=== PATIENT | female | born 1940 | race Caucasian/White ===

== ENCOUNTER → 2023-09-13 10:55 | Outpatient (REF) | payer MEDICARE, OTHER, SELFPAY | LOC: RAD 10:55 | PROVIDERS: ATTENDING PHYSICIAN Nurse Practitioner Family | DX: M25.562 Pain in left knee (principal) | CPT/HCPCS: 73564 ==

== ENCOUNTER → 2023-11-16 08:01 | Outpatient (REF) | payer MEDICARE, OTHER, SELFPAY ==
[2023-11-16 08:38] LABS: Urine Albumin Negative (Neg - Trace); Urine Bilirubin Negative (Negative); Urine Character Clear (Clear); Urine Color Yellow; Urine Glucose Negative (Negative); Urine Ketone Negative (Negative); Urine Leukocyte 1+ (Negative); Urine Nitrite Positive (Negative); Urine Occult Blood Negative (Negative); Urine Specific Gravity 1.015 (<1.030); Urine Urobilinogen Negative (Neg - 1+); Urine pH 6.5 (5.0-9.0)
[2023-11-16 08:49] LABS: Urine Bacteria Moderate (Negative); Urine White Cell 30-40 /HPF (0-5)
[2023-11-16 08:50] LABS: Urine Hyaline Cast 0-2 /LPF (0-2); Urine Red Blood Cell None Seen /HPF (0-2)
[2023-11-16 09:11] LABS: Glycohemoglobin (HgbA1c) 5.7 % (4.0-5.6)
[2023-11-16 10:01] LABS: Blood Urea Nitrogen 20 mg/dl (7-17); Calcium 9.6 mg/dl (8.4-10.2); Carbon Dioxide 29 mmol/L (22-30); Chloride 104 mmol/L (98-107); Glucose 90 mg/dl (70-99); Iron 72 ug/dl (37-170); Potassium 4.1 mmol/L (3.5-5.1); Sodium 143 mmol/L (135-145); eGFR > 60.00
[2023-11-16 10:11] LABS: Percent Saturation 26 % (20-50); Total Iron Binding Capacity 271 ug/dl (265-497)
[2023-11-16 10:20] LABS: TSH Reflex To Free T4 6.42 uIU/ml (0.47-4.68)
[2023-11-16 10:24] LABS: Ferritin 45.7 ng/ml (11.1-264.0)
[2023-11-16 10:39] LABS: Vitamin B12 880 pg/ml (239-931)
== END ==
LOC: REG 08:01
PROVIDERS: ATTENDING PHYSICIAN Emergency Medicine
DX: R53.83 Other fatigue (principal); C93.10 Chronic myelomonocytic leukemia not having achieved remission; D50.8 Other iron deficiency anemias; R73.03 Prediabetes; E53.8 Deficiency of other specified B group vitamins
CPT/HCPCS: 36415; 80048; 81003; 81015; 82607; 82728; 83036; 83540; 83550; 84439; 84443; 87077; 87086; 87186

== ENCOUNTER → 2024-01-10 12:11 | Outpatient (REF) | payer MEDICARE, OTHER, SELFPAY ==
[2024-01-10 15:57] LABS: Free T4 0.66 ng/dl (0.78-2.19)
== END ==
LOC: REG 12:11
PROVIDERS: ATTENDING PHYSICIAN Emergency Medicine
DX: R79.89 Other specified abnormal findings of blood chemistry (principal); E03.9 Hypothyroidism, unspecified
CPT/HCPCS: 36415; 84439; 84443

== ENCOUNTER → 2024-01-11 14:07 | Outpatient (REF) | payer MEDICARE, OTHER, SELFPAY | LOC: CLAB 14:07 | PROVIDERS: ATTENDING PHYSICIAN Emergency Medicine | DX: N39.0 Urinary tract infection, site not specified (principal) | CPT/HCPCS: 87086 ==

== ENCOUNTER → 2024-01-30 10:29 | Outpatient (REF) | payer MEDICARE, OTHER, SELFPAY | LOC: RAD 10:29 | PROVIDERS: ATTENDING PHYSICIAN Emergency Medicine | DX: M54.50 Low back pain, unspecified (principal) | CPT/HCPCS: 72110 ==

== ENCOUNTER → 2024-03-04 12:22 | Outpatient (REF) | payer MEDICARE, OTHER, SELFPAY ==
[2024-03-04 13:36] LABS: Hematocrit 36.6 % (37.0-47.0); Hemoglobin 12.1 g/dL (12.0-16.0); Mean Corp Hgb Conc. 33.1 g/dL (33.0-37.0); Mean Corpuscular Hgb 30.3 pg (27.0-31.0); Mean Corpuscular Volume 91.5 fL (81.0-99.0); Mean Platelet Volume 11.3 fL (7.4-10.4); Platelet Count 187 10^3/uL (130-400); Red Cell Dist. Width 13.9 % (11.5-14.5); White Blood Cell Count 5.2 10^3/uL (4.8-10.8)
[2024-03-04 14:17] LABS: Absolute Neutrophils -Man Diff 2.4 10^3/uL (1.4-6.5); Band Neutrophils 0 % (0-3); Segmented Neutrophils 47 % (42-75)
[2024-03-04 14:18] LABS: Eosinophils 1 % (0-6); Lymphocytes 27 % (20-51); Monocytes 25 % (2-9); Normal RBC Morphology Yes; Platelets Checked Yes; Total Cells Counted 100
[2024-03-04 14:28] LABS: TSH Reflex To Free T4 2.18 uIU/ml (0.47-4.68)
== END ==
LOC: REG 12:22
PROVIDERS: ATTENDING PHYSICIAN Internal Medicine Hematology & Oncology; FAMILY PHYSICIAN Emergency Medicine
DX: E03.9 Hypothyroidism, unspecified (principal); D72.821 Monocytosis (symptomatic); C93.10 Chronic myelomonocytic leukemia not having achieved remission
CPT/HCPCS: 36415; 84443; 85025

== ENCOUNTER → 2024-05-14 14:31 | Outpatient (REF) | payer MEDICARE, OTHER, SELFPAY ==
[2024-05-14 16:41] LABS: TSH Reflex To Free T4 1.25 uIU/ml (0.47-4.68)
== END ==
LOC: REG 14:31
PROVIDERS: ATTENDING PHYSICIAN Emergency Medicine
DX: E03.9 Hypothyroidism, unspecified (principal)
CPT/HCPCS: 36415; 84443

== ENCOUNTER → 2024-06-19 09:06 | Outpatient (REF) | payer MEDICARE, OTHER, SELFPAY | LOC: RCS 09:06 | PROVIDERS: ATTENDING PHYSICIAN Internal Medicine Cardiovascular Disease; FAMILY PHYSICIAN Emergency Medicine | DX: I34.0 Nonrheumatic mitral (valve) insufficiency (principal); I10 Essential (primary) hypertension | CPT/HCPCS: 93306 ==

== ENCOUNTER → 2024-07-10 12:30 | Outpatient (REF) | payer MEDICARE, OTHER, SELFPAY ==
[2024-07-10 13:25] LABS: ALT (SGPT) 21 U/L (0-35); AST (SGOT) 25 U/L (14-36); Albumin 4.9 g/dl (3.5-5.0); Alkaline Phosphatase 67 U/L (38-126); Blood Urea Nitrogen 16 mg/dl (7-17); Calcium 9.5 mg/dl (8.4-10.2); Carbon Dioxide 29 mmol/L (22-30); Chloride 103 mmol/L (98-107); Glucose 84 mg/dl (70-99); HDL Cholesterol 64 mg/dl; LDL Cholesterol, Calculated 111 mg/dl; Potassium 4.2 mmol/L (3.5-5.1); Sodium 139 mmol/L (135-145); Total Bilirubin 1.5 mg/dl (0.2-1.3); Total Cholesterol 190 mg/dl (50-199); Total Protein 7.3 g/dl (6.3-8.2); Triglyceride 77 mg/dl (10-149); Very Low Density Lipoprotein 15 mg/dl (0-30); eGFR > 60.00
[2024-07-10 13:28] LABS: Hematocrit 36.6 % (37.0-47.0); Hemoglobin 12.1 g/dL (12.0-16.0); Mean Corp Hgb Conc. 33.1 g/dL (33.0-37.0); Mean Corpuscular Hgb 29.2 pg (27.0-31.0); Mean Corpuscular Volume 88.4 fL (81.0-99.0); Mean Platelet Volume 11.1 fL (7.4-10.4); Platelet Count 189 10^3/uL (130-400); Red Blood Cell Count 4.14 10^6/uL (4.20-5.40); Red Cell Dist. Width 13.8 % (11.5-14.5); White Blood Cell Count 5.5 10^3/uL (4.8-10.8)
[2024-07-10 13:54] LABS: TSH Reflex To Free T4 3.89 uIU/ml (0.47-4.68)
[2024-07-10 14:06] LABS: Absolute Neutrophils -Man Diff 2.3 10^3/uL (1.4-6.5); Band Neutrophils 2 % (0-3); Eosinophils 2 % (0-6); Lymphocytes 29 % (20-51); Monocytes 26 % (2-9); Segmented Neutrophils 41 % (42-75)
[2024-07-10 14:07] LABS: Platelets Checked YES
[2024-07-10 14:12] LABS: Microcytosis FEW; Normal RBC Morphology No; Ovalocytes FEW; Poikilocytosis Slight; Total Cells Counted 100
[2024-07-11 07:22] LABS: Glycohemoglobin (HgbA1c) 5.6 % (4.0-5.6)
== END ==
LOC: REG 12:30
PROVIDERS: ATTENDING PHYSICIAN Emergency Medicine
DX: Z00.00 Encounter for general adult medical examination without abnormal findings (principal); E03.9 Hypothyroidism, unspecified; R73.03 Prediabetes; I10 Essential (primary) hypertension; E78.00 Pure hypercholesterolemia, unspecified; I34.0 Nonrheumatic mitral (valve) insufficiency
CPT/HCPCS: 36415; 80053; 80061; 83036; 84443; 85025

== ENCOUNTER → 2024-08-29 08:40 | Outpatient (REF) | payer MEDICARE, OTHER, SELFPAY ==
[2024-08-29 10:29] LABS: Direct Bilirubin 0.2 mg/dl (0.0-0.4); Total Bilirubin 1.3 mg/dl (0.2-1.3)
[2024-08-29 10:48] LABS: Vitamin D, 25-OH*** 60.3 ng/mL (30-80)
[2024-08-29 11:21] LABS: Vitamin B12 900 pg/ml (239-931)
== END ==
LOC: RAD 08:40
PROVIDERS: ATTENDING PHYSICIAN Emergency Medicine
DX: M47.812 Spondylosis without myelopathy or radiculopathy, cervical region (principal); R17 Unspecified jaundice; R68.89 Other general symptoms and signs; Z79.899 Other long term (current) drug therapy
CPT/HCPCS: 36415; 72052; 82247; 82248; 82306; 82607

== ENCOUNTER 2024-11-05 17:18 | Emergency (ER) | payer MEDICARE, OTHER, SELFPAY ==
[2024-11-05 17:28] VITALS: BP 147/73
[2024-11-05 17:52] LABS: Hematocrit 34.6 % (37.0-47.0); Hemoglobin 11.9 g/dL (12.0-16.0); Mean Corp Hgb Conc. 34.4 g/dL (33.0-37.0); Mean Corpuscular Hgb 30.1 pg (27.0-31.0); Mean Corpuscular Volume 87.6 fL (81.0-99.0); Mean Platelet Volume 11.3 fL (7.4-10.4); Platelet Count 173 10^3/uL (130-400); Red Blood Cell Count 3.95 10^6/uL (4.20-5.40); Red Cell Dist. Width 13.6 % (11.5-14.5); White Blood Cell Count 8.8 10^3/uL (4.8-10.8)
[2024-11-05 18:03] LABS: ALT (SGPT) 19 U/L (0-35); AST (SGOT) 24 U/L (14-36); Albumin 4.6 g/dl (3.5-5.0); Alkaline Phosphatase 52 U/L (38-126); Blood Urea Nitrogen 21 mg/dl (7-17); Calcium 9.9 mg/dl (8.4-10.2); Carbon Dioxide 29 mmol/L (22-30); Chloride 108 mmol/L (98-107); Glucose 106 mg/dl (70-99); Sodium 141 mmol/L (135-145); Total Bilirubin 0.9 mg/dl (0.2-1.3); Total Protein 7.2 g/dl (6.3-8.2); eGFR > 60.00
[2024-11-05 18:14] LABS: Troponin I < 0.012 ng/ml
[2024-11-05 18:18] LABS: Absolute Neutrophils -Man Diff 4.2 10^3/uL (1.4-6.5); Band Neutrophils 0 % (0-3); Lymphocytes 35 % (20-51); Monocytes 15 % (2-9); Platelets Checked Yes; Segmented Neutrophils 48 % (42-75)
[2024-11-05 18:19] LABS: Normal RBC Morphology Yes; Total Cells Counted 100
--- NOTE | 2024-11-05 20:55 | ED.GENMED ---
History of Present Illness
General
Chief Complaint: Fainting/Passed Out
Source: patient
Exam Limitations: none
Time Seen by Provider: 11/05/24 20:45
History of Present Illness
History of Present Illness:
See MDM
Past History
Past History
ED Past Medical History: HTN, Hypothyroidism and Other (Sinus tachycardia)
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
Social History
Tobacco: Former smoker
Alcohol: Occasional
Drug: None
Living: with family
Employment: Retired
Family History
Family History: Other (Has a mother with hypertension father with acromegaly and headaches)
Phy Exam
Physical Exam
Physical Exam:
See MDM
Course
Orders/Labs/Results
Orders:
Orders
11/05/24 17:32
Electrocardiogram (*1) Urgent
Reason for Study: Syncope
CT Head W/o Iv Contrast Urgent
Comment:
Reason For Exam: syncope, head injury
11/05/24 17:33
EKG- Treatment ONCE
11/05/24 17:37
Complete Blood Count/With Diff Urgent
Comprehensive Metabolic Panel Urgent
Manual Differential Urgent
Troponin I Urgent
Abnormal Lab Results
11/05/24
17:37
RBC 3.95 L 10^6/uL
(4.20-5.40)
Hgb 11.9 L g/dL
(12.0-16.0)
Hct 34.6 L %
(37.0-47.0)
MPV 11.3 H fL
(7.4-10.4)
Monocytes (Manual) 15 H %
(2-9)
Chloride 108 H mmol/L
(98-107)
BUN 21 H mg/dl
(7-17)
Glucose 106 H mg/dl
(70-99)
11/05/24 17:37
11/05/24 17:37
Vital Signs
Initial and Last Documented VS:
Initial Vital Signs
Temp Pulse Resp BP Pulse Ox
98.0 F 74 18 147/73 95
11/05/24 17:28 11/05/24 17:28 11/05/24 17:28 11/05/24 17:28 11/05/24 17:28
Last Documented Vital Signs
Temp Pulse Resp BP Pulse Ox
98.0 F 74 18 147/73 95
11/05/24 17:28 11/05/24 17:28 11/05/24 17:28 11/05/24 17:28 11/05/24 17:28
MDM/Problems Addressed
Differential Diagnosis Includes:
HPI and MDM Narrative:
84-year-old female presenting for evaluation of syncope. Patient was standing on a chair in the kitchen last night. She was reaching for something. The last thing she remembers is being on the couch. She cannot remember falling or hitting her
head or going to the couch. However, she did notice a small bump on her left posterior scalp. She does complain of a mild headache but went to bed. After hearing her friend raise concern for possible intracranial hemorrhage, she came in for
evaluation. EKG nonischemic. CT head negative. Blood work without clinically relevant abnormalities.
On my exam, she is well-appearing and nontoxic. She does also complain of mild tenderness over her coccyx but she is ambulating without difficulty and she actually played golf today.
We discussed multiple diagnoses for syncope including possible cardiac arrhythmia. She states she will follow-up with her fruit press operator and feels comfortable going home
Physical exam
General: Well appearing and non-toxic
HEENT: protecting airway. Small hematoma to left posterior
Neck: Nontender, supple
CV: No evidence of cyanosis. Regular rate and rhythm
Resp: No accessory muscle use
Abd: Non-distended
Back: No pelvic or lumbar tenderness
Extremities: No deformities
Neuro: alert
Psych: Normal affect
Skin: Intact
Problems Addressed including Acute and Chronic Conditions affecting care:
1. Head injury
Acuity: acute
Prognosis: stable
Details: CT head negative. Discussed the possibility of concussion
2. Syncope
Acuity: acute
Prognosis: stable
Details: We discussed the possibility of cardiac arrhythmia and outpatient Holter monitor.
Differential Diagnosis (but not limited to): Intracranial hemorrhage, concussion, cardiac arrhythmia
Testing considered: CT neck but she has no tenderness
Drug therapy (if applicable): OTC meds, please see d/c instruction regarding Rx drugs
Amount and/or Complexity of Data Reviewed
Clinical info obtained from: Patient
External data reviewed: N/A
Labs I independently reviewed (but not limited to): Troponin normal
Radiology: The CT scan was personally and independently reviewed. In addition, official CT report reviewed.
Pulse Ox: not hypoxic
EKG independently reviewed: Sinus rhythm, normal axis, no STEMI
Lead Android Developer: N/A
Critical Care: N/A
Risk of Complication:
Social Determinants of health: Good social support
Discussed with other providers: N/A
Escalation of Care includes Admit/Obs: After being observed in the Emergency Department, pt stable for discharge.
Occasional wrong word or 'sound a like' substitutions may have occurred due to the inherent limitations of voice recognition software. Read the chart carefully and recognize, using context, where substitutions have occurred.
*Critical Care Note
Total Time (30-74mins, 75-104mins- exclusive of procedures): Not Applicable
ED Attending Note
-
Portions of this chart may have been created with voice recognition software.� Occasional wrong word or��sound alike� substitutions may have occurred due to the inherent limitations of voice recognition software.
Discharge Plan
Departure
Patient Disposition: Home (Routine Discharge)
Date of Disposition: 11/05/24
Time of Disposition: 21:00
Patient with high blood pressure during this ER visit?: Yes
Discharge Problem:
Head injury, Syncope
Instructions: Syncope (Fainting) (DC)
Prescriptions:
No Action
aspirin [Aspir-Low] 81 MG tablet,delayed release (DR/EC)
81 mg PO DAILY
levothyroxine 100 MCG tablet
100 mcg PO SUTUTHSA
levothyroxine 88 MCG tablet
88 mcg PO MOWEFR
cholecalciferol (vitamin D3) [Vitamin D3] 1,000 UNIT capsule
1,000 unit PO DAILY
rosuvastatin [Crestor] 5 MG tablet
5 mg PO Daily
azithromycin 250 MG tablet
250 mg PO DAILY Qty: 4 0RF
amoxicillin [Amoxil] 875 MG tablet
875 mg PO BID Qty: 14 0RF
Activity Restrictions/Additional Instructions:
Please return for any worsening symptoms.
You may return at any time if you have further concerns.
Please follow up with your doctor at the first available appointment, preferably this week.
Please call the fruit press operator for first available appointment. Please discuss your symptoms. They may want to place a Holter monitor on you.
Thank you for choosing [facility].
Interventions
Interventions:
*Risk Screen - Suicide Last Done: 11/05/24 17:28
*General Assessment Last Done: 11/05/24 17:28
ED- Cardiac Assessment Last Done: 11/05/24 20:58
ED- Neurological Assessment Last Done: 11/05/24 20:58
Discharge Date and Time
Print Language: BENINESE
[2024-11-05 20:58] VITALS: BP 178/89; BMI 24.6
== END 2024-11-05 21:16 | disposition home or self-care (01) ==
LOC: EMR 17:18
PROVIDERS: Emergency Medicine; EMERGENCY PHYSICIAN Student in an Organized Health Care Education/Training Program; FAMILY PHYSICIAN Emergency Medicine
DX: S09.90XA Unspecified injury of head, initial encounter (principal); R55 Syncope and collapse; X58.XXXA Exposure to other specified factors, initial encounter; I10 Essential (primary) hypertension; E03.9 Hypothyroidism, unspecified; R00.0 Tachycardia, unspecified; Z87.891 Personal history of nicotine dependence; Z82.49 Family history of ischemic heart disease and other diseases of the circulatory system; Z86.73 Personal history of transient ischemic attack (TIA), and cerebral infarction without residual deficits
CPT/HCPCS: 99284; 70450; 80053; 84484; 85025; 93005

== ENCOUNTER → 2025-03-09 11:30 | Outpatient (REF) | payer MEDICARE, OTHER, SELFPAY ==
[2025-03-09 13:17] LABS: Hematocrit 35.6 % (37.0-47.0); Hemoglobin 11.9 g/dL (12.0-16.0); Mean Corp Hgb Conc. 33.4 g/dL (33.0-37.0); Mean Corpuscular Volume 89.7 fL (81.0-99.0); Platelet Count 175 10^3/uL (130-400); Red Cell Dist. Width 13.5 % (11.5-14.5)
[2025-03-09 16:03] LABS: Absolute Neutrophils -Man Diff 2.5 10^3/uL (1.4-6.5)
[2025-03-09 16:04] LABS: Normal RBC Morphology Yes; Platelets Checked Yes
[2025-03-09 16:05] LABS: Total Cells Counted 100
== END ==
LOC: REG 11:30
PROVIDERS: ATTENDING PHYSICIAN Internal Medicine Hematology & Oncology; FAMILY PHYSICIAN Emergency Medicine
DX: D72.821 Monocytosis (symptomatic) (principal); C93.10 Chronic myelomonocytic leukemia not having achieved remission
CPT/HCPCS: 36415; 85025

== ENCOUNTER → 2025-04-14 14:05 | Outpatient (REF) | payer MEDICARE, OTHER, SELFPAY ==
[2025-04-14 15:18] LABS: ALT (SGPT) 21 U/L (0-35); AST (SGOT) 25 U/L (14-36); Albumin 4.9 g/dl (3.5-5.0); Alkaline Phosphatase 50 U/L (38-126); Blood Urea Nitrogen 22 mg/dl (7-17); Calcium 10.0 mg/dl (8.4-10.2); Carbon Dioxide 30 mmol/L (22-30); Chloride 103 mmol/L (98-107); Glucose 131 mg/dl (70-99); Potassium 4.2 mmol/L (3.5-5.1); Sodium 138 mmol/L (135-145); Total Protein 8.0 g/dl (6.3-8.2); eGFR > 60.00
[2025-04-14 15:38] LABS: Vitamin D, 25-OH*** 54.7 ng/mL (30-80)
[2025-04-14 15:52] LABS: TSH 5.31 uIU/ml (0.47-4.68)
[2025-04-14 16:07] LABS: Absolute Neutrophils -Man Diff 2.4 10^3/uL (1.4-6.5); Hematocrit 40.0 % (37.0-47.0); Hemoglobin 13.0 g/dL (12.0-16.0); Mean Corp Hgb Conc. 32.5 g/dL (33.0-37.0); Mean Corpuscular Volume 89.9 fL (81.0-99.0); Platelet Count 199 10^3/uL (130-400); Red Cell Dist. Width 13.9 % (11.5-14.5)
[2025-04-14 16:08] LABS: Normal RBC Morphology Yes; Platelets Checked Yes; Total Cells Counted 100
[2025-04-14 16:12] LABS: Vitamin B12 940 pg/ml (239-931)
[2025-04-15 09:03] LABS: Glycohemoglobin (HgbA1c) 5.6 % (4.0-5.9)
== END ==
LOC: REG 14:05
PROVIDERS: ATTENDING PHYSICIAN Family Medicine
DX: E78.5 Hyperlipidemia, unspecified (principal); E03.9 Hypothyroidism, unspecified; E78.00 Pure hypercholesterolemia, unspecified; I10 Essential (primary) hypertension; E53.8 Deficiency of other specified B group vitamins; E55.9 Vitamin D deficiency, unspecified; R73.03 Prediabetes; D64.9 Anemia, unspecified; Z00.00 Encounter for general adult medical examination without abnormal findings
CPT/HCPCS: 36415; 80053; 82306; 82607; 83036; 84443; 85025

== ENCOUNTER → 2025-05-26 09:46 | Outpatient (REF) | payer MEDICARE, OTHER, SELFPAY ==
[2025-05-26 11:10] LABS: HDL Cholesterol 32 mg/dl; LDL Cholesterol, Calculated 88 mg/dl; Very Low Density Lipoprotein 20 mg/dl (0-30)
== END ==
LOC: REG 09:46
PROVIDERS: ATTENDING PHYSICIAN Family Medicine
DX: E78.2 Mixed hyperlipidemia (principal); E03.9 Hypothyroidism, unspecified; E78.00 Pure hypercholesterolemia, unspecified; I10 Essential (primary) hypertension; E53.8 Deficiency of other specified B group vitamins; E55.9 Vitamin D deficiency, unspecified; R73.03 Prediabetes; D64.9 Anemia, unspecified; Z00.00 Encounter for general adult medical examination without abnormal findings
CPT/HCPCS: 36415; 80061